=== PATIENT | male | born 1985 | race Caucasian/White ===

== ENCOUNTER 2016-11-20 12:43 | Inpatient (IN) | payer MEDICAID ==
[2016-11-20] MEDS ORDERED: HYDROmorphONE/DILAUDID 1 MG/ML SYR ONE (14:58)
[2016-11-20 15:03] LABS: % IMMATURE GRANULYOCYTES 0.2 % (0.0-1.1); ABSOLUTE IMMATURE GRANULOCYTES 0.02 10^3/uL (0.00-0.10); ADD DIFF? NO; ADD MORPH? NO; ADD SCAN? NO; ATYPICAL LYMPHOCYTE FLAG 20 (0-99); FRAGMENT RBC FLAG 0 (0-99); HEMOGLOBIN 16.6 g/dL (13.7-17.5); LEFT SHIFT FLG 0 (0-99); LIPEMIA HEMOLYSIS FLAG 90 (0-99); MEAN CELL HEMOGLOBIN 33.1 pg (27.9-34.1); MEAN CELL HEMOGLOBIN CONCENTR. 34.6 g/dL (32.4-36.7); MEAN CELL VOLUME 95.8 fL (81.5-99.8); MEAN PLATELET VOLUME 10.8 fL (8.7-11.7); PLATELET CLUMPS FLAG 10 (0-99); PLATELET COUNT 136 10^3/uL (150-400); RED BLOOD CELL COUNT 5.01 10^6/uL (4.40-6.38); RED CELL DISTRIBUTION WIDTH 12.1 % (11.5-15.2)
[2016-11-20] MEDS ORDERED: HYDROmorphONE/DILAUDID 1 MG/ML SYR IVP ONE ×2 (15:03→16:30)
[2016-11-20] MEDS ORDERED: NS 1,000 ML IV ONE ×2 (15:03→16:41)
--- NOTE | 2016-11-20 15:10 | EDPHY ---
H & P Smoking Status: Current every day smoker Time Seen by Provider: 11/20/16 15:07 HPI/ROS: HPI: 31-year-old male presents to emergency department with chief concern lower abdominal pain, nausea, vomiting. Symptoms onset 3 days ago. Reports lower abdominal pain, intermittently on the right, intermittently on the left, sometimes in the suprapubic region associated with nausea and vomiting. Reports associated hematuria and chills. Denies dizziness, headache, URI symptoms, shortness of breath, chest pain, back or flank pain, urinary burning or frequency, diarrhea. Past medical history includes kidney stones that necessitated removal by urologists, syphilis, gonorrhea, herpes. Was cleared of syphilis and gonorrhea last summer by [facility] per patient. Went to an urgent care today and was told he had blood in his urine. Last p.o. 1 pm today. ROS:10 point review of systems is negative other than as stated in HPI (Minnie Sampson) Past Medical/Surgical History: Kidney stones, syphilis, gonorrhea, herpes (Minnie Sampson) Social History: Works in the [employer] industry (Minnie Sampson) Physical Exam: Vital signs stable, reviewed by me General: Awake, alert, calm, cooperative. No acute distress. Head: Normalocephalic. Atraumatic. EENT: PERRLA. EOMI. No pallor or injection. Anicteric. No nystagmus. No injection. Neck: Supple, nontender. No lymphadenopathy. Full range of motion. No meningismus. Respiratory: Breathing unlabored. Breath sounds equal bilaterally and clear to auscultation. No adventitious sounds. CV: Chest nontender, atraumatic. Heart rate regular. No murmur, distal pulses 2+ bilaterally. Brisk cap refill all extremities. GI: Abdomen soft, lower abdominal tenderness throughout. Positive McBurney point. Positive rebound. Positive Rovsing. Bowel sounds normoactive and positive x4 quadrants. : No CVA or flank tenderness. Neuro: Alert. Oriented x 3. Speech clear. Nonfocal cranial nerves throughout. Sensation intact all extremities. Skin: Skin warm, dry, intact. No rashes, abrasions, or lacerations. Skin turgor normal. Extremities: Full range of motion in all 4 extremities. Strength 5+ all extremities. (Minnie Sampson) Constitutional: Initial Vital Signs Temperature (C) 36.6 C 11/20/16 12:46 Heart Rate 107 H 11/20/16 12:46 Respiratory Rate 16 11/20/16 12:46 Blood Pressure 139/82 H 11/20/16 12:46 O2 Sat (%) 94 11/20/16 12:46 O2 Delivery Mode Room Air Allergies/Adverse Reactions: No Known Allergies Allergy (Unverified 08/25/15 02:58) Home Medications: Medication Instructions Recorded NK [No Known Home Meds] 08/25/15 Medical Decision Making - Diagnostics Imaging: CT abdomen pelvis negative for kidney stone. Positive for appendicitis. Final report pending at time this dictation. (Minnie Sampson) ED Course/Re-evaluation: 31-year-old nontoxic afebrile male presents to emergency department with lower abdominal pain and reports of nausea and vomiting x3 days. He was told he had blood in his urine at an urgent care today. IV started. 1 L normal saline given. Patient given 0.5 mg Dilaudid for 7/[address] abdomen pelvis with and without ordered to rule out kidney stones and appendicitis. Splits specimen urine ordered. Declines nausea medicine presently. 1600: White count 8520. Metabolic panel shows CO2 19, anion gap 15. UA shows 1 + blood, negative nitrate, negative esterase, 1-3 RBCs. Urine GC and chlamydia are pending. CT abdomen pelvis pending. Pain decreased from 6/10. Additional 1 mg Dilaudid ordered. 1640: CT abdomen pelvis significant for appendicitis. 1 g IV Invanz and additional L normal saline given. Dr. Zachary Jay consulted. Patient comfortable. (Minnie Sampson) Differential Diagnosis: Differential diagnosis includes but is not limited to kidney stone, appendicitis , STI, pyelonephritis (Minnie Sampson) - Data Points Laboratory Results: Laboratory Results 11/20/16 14:55 11/20/16 14:55 11/20/16 11/20/16 15:36 14:55 WBC 8.52 10^3/uL (3.80-9.50) RBC 5.01 10^6/uL (4.40-6.38) Hgb 16.6 g/dL (13.7-17.5) Hct 48.0 % (40.0-51.0) MCV 95.8 fL (81.5-99.8) MCH 33.1 pg (27.9-34.1) MCHC 34.6 g/dL (32.4-36.7) RDW 12.1 % (11.5-15.2) Plt Count 136 L 10^3/uL (150-400) MPV 10.8 fL (8.7-11.7) Neut % (Auto) 78.1 H % (39.3-74.2) Lymph % (Auto) 12.1 L % (15.0-45.0) [place] % (Auto) 8.5 % (4.5-13.0) Eos % (Auto) 0.6 % (0.6-7.6) Baso % (Auto) 0.5 % (0.3-1.7) Nucleat RBC Rel Count 0.0 % (0.0-0.2) Absolute Neuts (auto) 6.66 H 10^3/uL (1.70-6.50) Absolute Lymphs (auto) 1.03 10^3/uL (1.00-3.00) Absolute Monos (auto) 0.72 10^3/uL (0.30-0.80) Absolute Eos (auto) 0.05 10^3/uL (0.03-0.40) Absolute Basos (auto) 0.04 10^3/uL (0.02-0.10) Absolute Nucleated RBC 0.00 10^3/uL (0-0.01) Immature Gran % 0.2 % (0.0-1.1) Immature Gran # 0.02 10^3/uL (0.00-0.10) PT 13.7 SEC (12.0-15.0) INR 1.06 (0.83-1.16) APTT 32.1 SEC (23.0-38.0) Sodium 141 mEq/L (134-144) Potassium 4.2 mEq/L (3.5-5.2) Chloride 107 mEq/L (97-110) Carbon Dioxide 19 L mEq/l (22-31) Anion Gap 15 mEq/L (8-16) BUN 7 mg/dL (7-23) Creatinine 0.9 mg/dL (0.7-1.3) Estimated GFR > 60 Glucose 73 mg/dL (70-100) Calcium 8.9 mg/dL (8.5-10.4) Urine Color YELLOW Urine Appearance CLEAR Urine pH 5.0 (5.0-7.5) Ur Specific [place] 1.019 (1.002-1.030) Urine Protein 3+ H (NEGATIVE) Urine Ketones 1+ H (NEGATIVE) Urine Blood 1+ H (NEGATIVE) Urine Nitrate NEGATIVE (NEGATIVE) Urine Bilirubin NEGATIVE (NEGATIVE) Urine Urobilinogen NEGATIVE EU (0.2-1.0) Ur Leukocyte Esterase NEGATIVE (NEGATIVE) Urine RBC 1-3 /hpf (0-3) Urine WBC 1-3 /hpf (0-3) Ur Epithelial Cells TRACE /lpf (NONE-1+) Hyaline Casts 1-5 /lpf (0-1) Urine Mucus TRACE /lpf (NONE-1+) Urine Glucose NEGATIVE (NEGATIVE) C.trachomatis RNA (TMA) Pending N.gonorrhoeae RNA (TMA) Pending Medications Given: Discontinued Medications Hydromorphone HCl (Dilaudid) 0.5 mg IVP EDNOW ONE Stop: 11/20/16 15:04 Last Admin: 11/20/16 15:11 Dose: 0.5 mg Hydromorphone HCl (Dilaudid) 1 mg IVP EDNOW ONE Stop: 11/20/16 16:31 Last Admin: 11/20/16 16:34 Dose: 1 mg Sodium Chloride (Ns) 1,000 mls @ 0 mls/hr IV ONCE ONE PRN Reason: Wide Open Stop: 11/20/16 15:04 Last Admin: 11/20/16 15:11 Dose: 1,000 mls Sodium Chloride (Ns) 1,000 mls @ 0 mls/hr IV ONCE ONE PRN Reason: Wide Open Stop: 11/20/16 16:42 Last Admin: 11/20/16 16:50 Dose: 1,000 mls Departure - Departure Disposition: [facility] Acute Clinical Impression: Acute appendicitis Condition: Good
[2016-11-20 15:27] LABS: ANION GAP 15 mEq/L (8-16); CALCIUM 8.9 mg/dL (8.5-10.4); CARBON DIOXIDE 19 mEq/l (22-31); CHLORIDE 107 mEq/L (97-110); CREATININE 0.9 mg/dL (0.7-1.3); GLOMERULAR FILTRATION RATE > 60; GLUCOSE 73 mg/dL (70-100); POTASSIUM 4.2 mEq/L (3.5-5.2); SODIUM 141 mEq/L (134-144)
[2016-11-20] MEDS ORDERED: IOPAMIDOL (ISOVUE-300) 50 ML VIAL IV ONE (15:44)
[2016-11-20 15:56] LABS: COLOR YELLOW; LEUKOCYTE ESTERASE,URINE NEGATIVE (NEGATIVE); NITRITE,URINE NEGATIVE (NEGATIVE)
[2016-11-20 16:00] LABS: MUCUS TRACE /lpf (NONE-1+)
[2016-11-20] MEDS ORDERED: ERTAPENEM 1 GM in NS 100 ML IV ONE (16:42)
--- NOTE | 2016-11-20 16:54 | CT ---
CT Abdomen and Pelvis With Contrast Clinical indication: Central abdominal pain and history of kidney stone. Comparison report: July 15, 2005. Technique 1.5 mm contiguous helical axial scanning from the lung bases to the pubic symphysis after t he uneventful administration of 80 mL of Isovue 300. Dose reduction technique was performed. Findings: Lung bases are clear. There is fatty infiltration of the liver. Spleen, pancreas, adrenals, and kidneys are unremarkable. No evidence of stones. Small bowel is unremarkable. There is a 12 mm a ppendix in the lower mid abdomen off the cecum with areas of fat stranding. Bones are unremarkable for age. Impression: 1. Appendicitis. 2. No evidence residual nephrolithiasis. 3. Fatty infiltration of the liver. Critical results relayed by Dr. Bean to Minnie Sampson PA-C, today at 1638 hours
[2016-11-20 17:00] LABS: APTT 32.1 SEC (23.0-38.0); INR 1.06 (0.83-1.16); PROTIME(PATIENT) 13.7 SEC (12.0-15.0)
--- NOTE | 2016-11-20 18:04 | PDGENHP ---
History and Physical History and Physical: CC: Abdominal pain HPI: 31 y/o male with 3 day history of abdominal pain, nausea and vomiting. He was seen in the ED by MIRELA Samspon, and surgical consultation was requested. PMH: ureterolithiasis surgery: lithotripsy, circumcision, pilonidal cyst tobaco: 1ppd + marijuana EtOH: ++ NKDA SH: master's in chemistry from [employer]: [place] ROS: no diarrhea, dysuria/hematuria PE: T 37.1 P 82 R 18 O2 sat 96% - adenopathy lungs clear CVS RRR abd: soft/hypoactive bowel sounds, tender RLQ to percussion and palpation, + Rovsing's sign no hernia, mass, HSM Ct reviewed wbc wnl UA +3 protein/1-3 rbc Imp: Appendicitis Tobacco use Marijuana use EtOh use Rec: We discussed appendectomy vs. antibiotic treatment and the pros and cons of each. I recommended appendectomy. We discussed laparoscopic appendectomy, risks and expected recovery. Informed consent was obtain. I counselled him regarding smoking cessation/he is at higher risk of post operative complications as a result. 1 gram Ertapenam was given in the ED. Nasir Jay MD, FACS
[2016-11-20] MEDS ORDERED: BUPIVACAINE 0.25% 30 ML SDV ONE (18:33)
[2016-11-20] MEDS ORDERED: MIDAZOLAM 2 MG/2 ML VIAL ONE (18:39)
[2016-11-20] MEDS ORDERED: fentaNYL 100 MCG/2 ML INJ ONE ×3 (18:43→20:23)
[2016-11-20] MEDS ORDERED: PROPOFOL 200 MG/20 ML VIAL ONE ×2 (18:43→19:11)
[2016-11-20] MEDS ORDERED: ONDANSETRON 4 MG/2 ML VIAL ONE (18:44)
[2016-11-20] MEDS ORDERED: METOCLOPRAMIDE 10 MG/2 ML VIAL ONE (18:44)
[2016-11-20] MEDS ORDERED: ROCURONIUM 50 MG/5 ML VIAL ONE (18:44)
[2016-11-20] MEDS ORDERED: METOPROLOL TARTRATE 5 MG/5 ML INJ ONE (19:14)
[2016-11-20] MEDS ORDERED: GLYCOPYRROLATE 0.2 MG/1 ML VIAL ONE (19:43)
[2016-11-20] MEDS ORDERED: ONDANSETRON 4 MG/2 ML VIAL IVP PRN (20:04)
[2016-11-20] MEDS ORDERED: TEMAZEPAM 15 MG CAP PO PRN (20:04)
[2016-11-20] MEDS ORDERED: METOCLOPRAMIDE 10 MG/2 ML VIAL IVP PRN (20:04)
[2016-11-20] MEDS ORDERED: DEXAMETHASONE 4 MG/ML VIAL ONE (20:07)
--- NOTE | 2016-11-20 20:21 | POSTOPPROG ---
Post Op Note Date of Operation: 11/20/16 Surgeon: Zachary Jay (, FACS) Anesthesiologist: Glenn Stewart MD Anesthesia: GET(General Endotracheal) Pre-op Diagnosis: appendicitis Post-op Diagnosis: same Procedure: laparoscopic appendectomy Findings: acute suppurative appendicitis Inf/Abcess present in the surg proc area at time of surgery?: Yes Depth: Organ Space EBL: Minimal Complications: none Specimen(s): appendix
[2016-11-20] MEDS ORDERED: MEPERIDINE 25 MG/ML SYR ONE (20:23)
[2016-11-20] MEDS: IBUPROFEN 600 MG TAB PO SCH (21:28)
[2016-11-20] MEDS: LR 1,000 ML IV SCH (21:29)
[2016-11-20] MEDS: NICOTINE 14 MG/24 HR PATCH TD SCH (21:34)
[2016-11-20] MEDS: HYDROmorphONE/DILAUDID 1 MG/ML SYR IVP PRN (23:18)
[2016-11-21 00:37] LABS: COLOR YELLOW; LEUKOCYTE ESTERASE,URINE NEGATIVE (NEGATIVE); NITRITE,URINE NEGATIVE (NEGATIVE)
[2016-11-21] MEDS: HYDROmorphONE/DILAUDID 1 MG/ML SYR IVP PRN (04:37)
[2016-11-21] MEDS: IBUPROFEN 600 MG TAB PO SCH ×3 (04:37→21:44)
--- NOTE | 2016-11-21 06:35 | GOP ---
[f rep st] OPERATIVE REPORT DATE OF OPERATION: 11/20/2016 SURGEON: Zachary Jay MD, FACS ANESTHESIA: General endotracheal, Glenn Stewart MD PREOPERATIVE DIAGNOSIS: Acute appendicitis. POSTOPERATIVE DIAGNOSIS: Acute appendicitis. PROCEDURE PERFORMED: Laparoscopic appendectomy. FINDINGS: Acute suppurative appendicitis without perforation or gangrene. ESTIMATED BLOOD LOSS: Less than 10 cc. DESCRIPTION OF PROCEDURE: After informed consent was obtained, the patient was brought to the operating room, placed under general anesthesia. The abdomen was prepped and draped in the usual fashion. Before proceeding, a time-out and identification of patient was performed. 0.25% Marcaine was used to infiltrate the skin at the base of the umbilicus and a longitudinal incision was made. Ventral traction was applied to the abdominal wall and a Veress needle was introduced into the peritoneal cavity. Position was confirmed by saline infusion. A pneumoperitoneum was established with CO2 gas to a pressure of 15 mmHg. The Veress needle was withdrawn and replaced with a 5 mm bladeless trocar. A 30 degree scope was introduced and the peritoneal cavity was visualized. An additional 5 mm port was placed in the suprapubic position and a 12 mm left lower quadrant port was placed under direct visualization, after infiltrating both sites liberally with 0.25% Marcaine plain. This allowed introduction of atraumatic grasping forceps. The appendix was identified draped over the pelvic brim, with a loop of small bowel adherent to the wall. These were gently bluntly and suppurative fibrinopurulent exudate was noted. There was, however, no federico perforation or gangrene noted. The mesoappendix was taken down with the Harmonic Scalpel, and the appendix from the cecum with a single firing of the MARIUSZ stapler. The appendix was retrieved through the left lower quadrant port site with an Endopouch. The operative site appeared hemostatic. There was no fluid in the pelvis or in the right pericolic gutter. The pneumoperitoneum was evacuated. The remaining ports were removed. The left lower quadrant fascial closure was accomplished with interrupted 0 Vicryl suture. Subcutaneous tissues were approximated with 3-0 Monocryl suture, and the skin was closed with 4-0 Monocryl suture, in a subcuticular fashion. Mastisol, Steri-Strips were applied. Needle, sponge, instrument count were correct. COMPLICATIONS: None. Copy requested to: Dr. Everardo Michele [address] [facility] [id number] /[id number]/MODL MTDD
--- NOTE | 2016-11-21 06:56 | SOAPPROG ---
Downtime Inpatient Late Entry SOAP Note: S-resting comfortably/no further emesis/no flatus O- AFVSS abd-soft/distended/incisions o.k. Imp: POD #1 lap appendectomy for suppurative appendicitis- doing well/post op ileus Rec: continue Invanz/anticipate discharge tomorrow ID Consult Requested for clarification of anti-retroviral therapy (Pt. is HIV negative) Nasir Jay MD, FACS
[2016-11-21] MEDS: EMTRICITABINE/TENOFOVIR 200MG/300MG TAB PO SCH (08:13)
[2016-11-21] MEDS: ERTAPENEM 1 GM in NS 100 ML IV SCH (08:13)
[2016-11-21] MEDS: ENOXAPARIN 40 MG/0.4 ML SYR SC SCH (08:14)
[2016-11-21] MEDS: LR 1,000 ML IV SCH ×2 (08:14→18:38)
[2016-11-21] MEDS: NICOTINE 14 MG/24 HR PATCH TD SCH (08:17)
[2016-11-21] MEDS: OXYCODONE/APAP 5/325 TAB PO PRN ×3 (11:56→23:56)
[2016-11-21] MEDS: SENNOSIDES/DOCUSATE SODIUM TAB PO SCH ×2 (11:58→21:44)
[2016-11-21 13:03] LABS: CHLAMYDIA AMPLIFICATION GENPRB NEGATIVE (NEGATIVE)
[2016-11-22] MEDS: OXYCODONE/APAP 5/325 TAB PO PRN ×2 (04:12→08:25)
[2016-11-22] MEDS: LR 1,000 ML IV SCH (04:13)
[2016-11-22 06:54] VITALS: RESP 18
[2016-11-22] MEDS: IBUPROFEN 600 MG TAB PO SCH (07:12)
[2016-11-22] MEDS: NICOTINE 14 MG/24 HR PATCH TD SCH (08:24)
[2016-11-22] MEDS: EMTRICITABINE/TENOFOVIR 200MG/300MG TAB PO SCH (08:24)
[2016-11-22] MEDS: ENOXAPARIN 40 MG/0.4 ML SYR SC SCH (08:24)
[2016-11-22] MEDS: ERTAPENEM 1 GM in NS 100 ML IV SCH (08:24)
[2016-11-22 08:26] VITALS: BP 131/98; PULSE 82; TEMP 97.9; O2SAT 94
--- NOTE | 2016-11-22 09:59 | PDDCSUM ---
Discharge Summary Discharge Summary: DOA: 11/20/16 DOD: 11/22/16 DC Diagnosis: Appendicitis Procedure: 11/20 Lap Appendectomy DC Meds: Brigette per [facility] Percocet #30 Senokot-S #30 Ibuprofen 600mg #30 Course: Patient present with advanced but not perforated appendicitis. He underwent lap appy and received 3 doses total Ertapenam. At time of discharge his bowel function had returned and he was afebrile, ambulatory and his incisions were healing without signs of infection. FU my office one week FU [place] [facility] to Rx Brigette Discussed smoking cessation. Nasir Jay MD, FACS
[2016-11-22] MEDS ORDERED: PNEUMOCOCCAL 0.5ML VACCINE VIAL IM ONE (10:30)
[2016-11-22] MEDS ORDERED: PNEUMOCOCCAL 0.5ML VACCINE VIAL ONE (10:55)
[2016-11-22] MEDS: SENNOSIDES/DOCUSATE SODIUM TAB PO SCH (12:15)
== END 2016-11-22 11:02 | disposition home or self-care (01) | DRG 343 ==
LOC: F1N 20:34 → OBSVTOIN 11-21 12:25
PROVIDERS: ADMIT Surgery; ATTEND Surgery
PROC: 0DTJ4ZZ Resection of Appendix, Percutaneous Endoscopic Approach (ICD-10-PCS; principal; 2016-11-21)
DX: K35.80 Unspecified acute appendicitis (principal); Z87.891 Personal history of nicotine dependence; Z87.442 Personal history of urinary calculi; Z86.19 Personal history of other infectious and parasitic diseases
CPT/HCPCS: 96374; G0009; G0378; J1100; J1170; J1335; J1650; J2250; J2405; J2704; J2765; J3010; Q9967